=== PATIENT | female | born 1945 | race Hispanic/Latino ===

== ENCOUNTER → 2017-11-25 | Outpatient (CLI) | payer OTHER ==
[~2017-11-25] MED LIST: AEC81 PO; AMLO1CAP PO; CIPR500S4 PO; FLUO20CA30 PO; IBUP-2071 PO; NEBI10TA PO; OXYB15TA PO
== END | disposition home or self-care (01) ==
LOC: OIH 11:23
PROVIDERS: ATTEND Family Medicine
DX: M47.896 Other spondylosis, lumbar region (principal); M25.521 Pain in right elbow
CPT/HCPCS: 72100; 73080

== ENCOUNTER 2020-02-05 17:50 | Emergency (ER) | payer OTHER, MEDICARE ==
[~2020-02-05 17:50] MED LIST changes: -OXYB15TA PO; +OXYB15TA19 PO
[2020-02-05] MEDS ORDERED: ONDANSETRON HCL 4 MG/2 ML VIAL ONE (19:15)
[2020-02-05] MEDS ORDERED: LORAZEPAM 2 MG/ML 1 ML VIAL ONE (19:16)
[2020-02-05 19:35] LABS: EOSINOPHILS % (AUTO) 1.7 % (0.0-8.0); HEMATOCRIT 38.1 % (36-48); LYMPHOCYTES % (AUTO) 13.1 % (21.0-51.0); MEAN CORPUSCULAR HEMOGLOBIN 26.9 pg (27.0-33.0); MEAN CORPUSCULAR HGB CONC 31.8 g/dL (32.0-36.0); MEAN CORPUSCULAR VOLUME 84.9 fL (79-99); MONOCYTES % (AUTO) 4.1 % (3.0-13.0); NEUTROPHILS % (AUTO) 79.9 % (40.0-77.0); PLATELET COUNT (AUTO) 223 K/uL (130-400); RED BLOOD CELL COUNT(AUTO) 4.49 MIL/uL (4.00-5.50); RED CELL DISTRIBUTION WIDTH 14.6 % (11.0-15.5); WHITE BLOOD COUNT (AUTO) 8.4 K/uL (4.8-10.8)
[2020-02-05 19:49] LABS: CREATININE 0.9 mg/dL (0.5-1.5); POTASSIUM 3.8 mmol/L (3.5-5.1)
[2020-02-05 19:51] LABS: INR 0.93 (0.85-1.15); PARTIAL THROMBOPLASTIN TIME 26.2 SEC (26.3-35.5); PROTHROMBIN TIME 10.1 SEC (9.6-11.6)
[2020-02-05 19:54] LABS: ALBUMIN 3.8 g/dL (3.5-5.0); BILIRUBIN,TOTAL 0.5 mg/dL (0.2-1.0); TOTAL PROTEIN, SERUM 7.1 g/dL (6.0-8.3)
[2020-02-05 20:28] LABS: B-TYPE NATRIURETIC PEPTIDE 39 pg/mL (0-100)
== END 2020-02-05 20:55 | disposition home or self-care (01) ==
LOC: EDH 17:50
DX: R42 Dizziness and giddiness (principal); R11.10 Vomiting, unspecified; R53.1 Weakness; E78.5 Hyperlipidemia, unspecified; I10 Essential (primary) hypertension; Z88.8 Allergy status to other drugs, medicaments and biological substances; Z87.891 Personal history of nicotine dependence; Z90.710 Acquired absence of both cervix and uterus; Z98.890 Other specified postprocedural states
CPT/HCPCS: 36415; 70450; 71045; 80053; 82550; 83880; 84484; 85025; 85610; 85730; 93005; 96374; 96375; 99285; J2060; J2405

== ENCOUNTER → 2021-10-24 | Outpatient (CLI) | payer OTHER, MEDICARE | END | disposition home or self-care (01) | LOC: RAH 13:50 | PROVIDERS: ATTEND Family Medicine | DX: M16.0 Bilateral primary osteoarthritis of hip (principal); M77.8 Other enthesopathies, not elsewhere classified; Z98.890 Other specified postprocedural states | CPT/HCPCS: 73502 ==

== ENCOUNTER → 2022-08-02 | Outpatient (CLI) | payer OTHER, MEDICARE ==
[~2022-08-02] MED LIST changes: +REGADENOSON 0.4 MG/5 ML PF SYG IVP SCH
== END | disposition home or self-care (01) ==
LOC: RAH 08:41
PROVIDERS: ATTEND Family Medicine
DX: I10 Essential (primary) hypertension (principal); I20.9 Angina pectoris, unspecified
CPT/HCPCS: 78452; 96374; 93017; J2785; A9500 ×2

== ENCOUNTER 2025-05-28 16:14 | Emergency (ER) | payer OTHER, MEDICAID ==
[~2025-05-28] VITALS: Ht 162.6 cm; Wt 83.5 kg
[~2025-05-28 16:14] MED LIST changes: -FLUO20CA30 PO; +FLUO20CA32 PO; -NEBI10TA PO; +NEBI10TA10 PO; -REGADENOSON 0.4 MG/5 ML PF SYG IVP SCH
--- NOTE | 2025-05-28 16:34 | ERN ---
General Chief Complaint: Lower Extremity Pain/Injury Stated Complaint: LT LEG PAIN Time Seen by MD: 16:16 Source: patient History of Present Illness Initial Comments Patient is a 72-year-old female coming in complaining of left knee pain. Per patient the pain started yesterday. She states the pain localizes of the left posterior knee. Allergies: Coded Allergies: No Known Allergies (Unverified Allergy, Unknown, 07/09/16) Home Meds Reported Medications Ibuprofen (Ibuprofen) 800 Mg Tablet, 800 MG PO TID PRN for PAIN LEVEL 1 TO 5, TAB 04/25/17 Fluoxetine HCl (Prozac) 20 Mg Cap, 20 MG PO DAILY, CAP 04/25/17 Oxybutynin Chloride (Oxybutynin Chloride ER) 15 Mg Tab.er.24, 15 MG PO DAILY 04/25/17 Nebivolol HCl (Bystolic) 10 Mg Tablet, 10 MG PO DAILY, TAB 04/25/17 Ciprofloxacin (Cipro) 500 Mg/5 Ml Alena.mc.rec, 500 MG PO DAILY 04/25/17 Amlodipine Besylate/Benazepril (Lotrel 10-20 mg Capsule) 1 Each Capsule, PO AM, CAP 01/21/15 Aspirin (ASPIRIN 81 MG ECTAB) 81 Mg Ectab, 81 MG PO DAILY, TAB.EC 01/21/15 Past Medical History Past Medical History: CVA, High Cholesterol, Hypertension Past Surgical History: None ROS Dictation CONSTITUTIONAL: No chills, no fever, no weakness, no diaphoresis, no malaise. HEAD/FACE: No signs of trauma. EENT: No eye pain, no blurred vision, no tearing, no double vision, no ear pain, no ear discharge, no nose pain, no nasal congestion, no throat pain, no throat swelling, no mouth pain. RESPIRATORY: No cough, no orthopnea, no SOB, no stridor, no wheezing. CARDIOVASCULAR: No chest pain, no edema, no palpitations, no syncope. GASTROINTESTINAL/ABDOMINAL: No abdominal pain, no constipation, no diarrhea, no nausea, no vomiting. GENITOURINARY: No abnormal discharge, no dysuria, no frequent urination, no hematuria. No complaints of pain in the genitals. MUSCULOSKELETAL: No back pain, no gout, joint pain, no joint swelling, no muscle pain, no muscle stiffness, no neck pain. INTEGUMENTARY: No change in color, no change in hair/nails, no dryness, no lesion, no lumps, no rash. NEUROLOGICAL/PSYCH: No anxiety, not depressed, no emotional problem, no headache, no numbness, no pre-existing deficit, no history of seizures, no tremors, no weakness. HEMATOLOGIC/LYMPHATIC: Not anemic, no history of blood clots, no apparent bleeding, no bruising, glands not swollen. All Systems Negative, Except as Noted. Results EKG/XRAY/US/CT/MRI X-RAY Comment [facility] [address] [id number] IMAGING REPORT Signed PATIENT: KRYSTYNA MAYBERRY MR#: [id number] : 1945 SEX: F AGE: 80 LOCATION: ED ORDER 18 STATUS: REG ER REPORT#: [id number] SERVICE 17 REASON: pain ORDERING PHYSICIAN: PERLA KELLY MD PROCEDURE: KNEE 3V LT - KNEE 3VWS LT EXAM: CR left Knee, 3 View. CLINICAL HISTORY: pain COMPARISON: None provided. FINDINGS: BONES: No acute fracture or aggressive appearing osseous lesion. 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 IMPRESSION: 1. 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 Moderate joint effusion /[place] DICTATED BY: MITUL LIVINGSTON MD DATE: 05/28/251907 ELECTRONICALLY SIGNED BY: MITUL LIVINGSTON MD DATE: 05/28/251907 Ultrasound Comment [facility] [address] [id number] IMAGING REPORT Signed PATIENT: KRYSTYNA MAYBERRY MR#: [id number] : 1945 SEX: F AGE: 80 LOCATION: ED ORDER 18 STATUS: REG ER HOSPITAL REPORT#: [id number] SERVICE [id number] REASON: left lower extremity pain ORDERING PHYSICIAN: PERLA KELLY MD PROCEDURE: VENOUS UNI - US VENOUS DOPPLER UNILATERAL EXAM: US for Deep Venous Thrombosis, left Lower Extremity. CLINICAL HISTORY: Leg Pain and Swelling TECHNIQUE: Real-time ultrasound scan of the veins of the left lower extremity with color Doppler flow, spectral waveform analysis and compression. COMPARISON: None provided. FINDINGS: DEEP VEINS: The common femoral, superficial femoral, and popliteal veins are echolucent and compressible. There is normal color Doppler flow throughout. The visualized calf veins appear patent. SOFT TISSUES: No popliteal fossa cyst or other abnormalities. IMPRESSION: No deep venous thrombosis evident on left lower extremity examination. /[place] DICTATED BY: MITUL LIVINGSTON MD DATE: 05/28/251841 ELECTRONICALLY SIGNED BY: MITUL LIVINGSTON MD DATE: 05/28/251841 MDM MDM: Differential diagnosis: Knee strain, he has been Rationale: Tests considered and ordered secondary to shared decision making include: Previous outside records reviewed: Old ER visits. Risk of complication and/or morbidity or mortality of patient management: None Medications-Per medication reconciliation Need for hospitalization: Patient does not meet criteria for hospitalization. Need for emergency major/minor surgery: No patient is a 72-year-old female coming in complaining of the knee pain. X-ray and ultrasound did not disclose acute findings. Patient will be discharged in stable condition with a diagnosis knee strain. Knee immobilizer will be placed to help with discomfort. ED Course Orders Procedure Category Date Status Time Us Venous Doppler US 05/28/25 Resulted Unilateral 16:18 Knee 3vws Lt RAD 05/28/25 Resulted 16:18 Knee Immobilizer MARCUS 05/28/25 Transmitted 18:26 Vital Signs Date Time Temp Pulse Resp B/P (MAP) Pulse Ox O2 Delivery O2 Flow Rate FiO2 05/28/25 16:30 98.4 72 16 145/90 98 Room Air* 0 21 05/28/25 16:18 98.4 73 20 147/93 97 Room Air DX & DISP Disposition: Discharge Departure Impression: Primary Impression: Strain of left knee Condition: Stable Scripts Diclofenac Sodium (Voltaren Arthritis Pain) 1 % Gel..gram. 5 GM TP BID for 7 Days, #1 TUBE Prov: PERLA KELLY MD 05/28/25 Additional Instructions: FOLLOW-UP WITH PRIMARY CARE PROVIDER IN 1 TO 2 DAYS. TAKE MEDICATIONS DIRECTED HERE IN THE EMERGENCY ROOM. OKAY TO CONTINUE HOME MEDICATIONS UNLESS OTHERWISE DISCUSSED DURING YOUR VISIT IN THE EMERGENCY ROOM TODAY. RETURN TO YOUR NEAREST EMERGENCY ROOM IF SYMPTOMS WORSEN OR IF THERE IS NO IMPROVEMENT. CALL 911 IF YOU NEED IMMEDIATE ASSISTANCE. TAKE TYLENOL [id number] NEEDED AND IF NO CONTRAINDICATIONS ARE PRESENT. INCREASE ORAL HYDRATION. A WOUND CULTURE OR URINE CULTURE WAS ORDERED HERE IN THE EMERGENCY ROOM DEPARTMENT PLEASE FOLLOW-UP WITH PRIMARY CARE PROVIDER AND ADVISE THEM TO GET REPORTS FROM OUR FACILITY. IF YOU HAD ANY ABBIE WRAP/SPLINTS THAT WERE APPLIED HERE, PLEASE DO NOT REMOVE THEM UNTIL YOU SEE YOUR PRIMARY CARE OR SPECIALTY. Referrals: Referrals: JACKIE DOOLEY MD (PCP) Time of Disposition: 18:25 PERLA KELLY MD May 28, 2025 16:34
--- NOTE | 2025-05-28 17:43 | HMCIMG ---
EXAM: US for Deep Venous Thrombosis, left Lower Extremity. CLINICAL HISTORY: Leg Pain and Swelling TECHNIQUE: Real-time ultrasound scan of the veins of the left lower extremity with color Doppler flow, spectral waveform analysis and compression. COMPARISON: None provided. FINDINGS: DEEP VEINS: The common femoral, superficial femoral, and popliteal veins are echolucent and compressible. There is normal color Doppler flow throughout. The visualized calf veins appear patent. SOFT TISSUES: No popliteal fossa cyst or other abnormalities. IMPRESSION: No deep venous thrombosis evident on left lower extremity examination. /[place]
--- NOTE | 2025-05-28 18:10 | HMCIMG ---
EXAM: CR left Knee, 3 View. CLINICAL HISTORY: pain COMPARISON: None provided. FINDINGS: BONES: No acute fracture or aggressive appearing osseous lesion. 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 IMPRESSION: 1. 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 Moderate joint effusion /[place]
[2025-05-28] MEDS ORDERED: DICL20GE TP (18:27)
--- NOTE | 2025-05-28 18:32 | NUR ---
KNEE IMOBOLIZER PLACED PER MD REQUEST
[2025-05-28 18:33] VITALS: BP 140/86; PULSE 74; RESP 16; TEMP 98.5; O2SAT 98
== END 2025-05-28 18:46 | disposition home or self-care (01) ==
LOC: EDH 16:14
DX: S86.912A Strain of unspecified muscle(s) and tendon(s) at lower leg level, left leg, initial encounter (principal); E78.00 Pure hypercholesterolemia, unspecified; I10 Essential (primary) hypertension; Z79.82 Long term (current) use of aspirin; Z79.899 Other long term (current) drug therapy; Z86.73 Personal history of transient ischemic attack (TIA), and cerebral infarction without residual deficits; X58.XXXA Exposure to other specified factors, initial encounter; Y93.01 Activity, walking, marching and hiking; Y92.89 Other specified places as the place of occurrence of the external cause; Y99.8 Other external cause status; M79.662 Pain in left lower leg
CPT/HCPCS: 29505; 73562; 93971; 99284